=== PATIENT | female | born 1960 | race Caucasian/White ===

== ENCOUNTER → 2016-06-27 | Outpatient (CLI) | payer OTHER ==
[~2016-06-27] MED LIST: ASPIRIN325 MG PO; BENADRYL25 MG PO; LAMICTAL200 MG PO; LAMOTRIGINE200 MG PO; MEDROL DOSEPAK4 MG PO; MICROZIDE12.5 MG PO; NASONEX17 GM NASBOTH; OXYCODONE HCL5 MG PO; PRINIVIL10 MG PO; PRINIVIL20 MG PO; TRAZODONE HCL50 MG PO; TYLENOL325 MG PO; VALIUM5 MG PO; VALTREX1000 MG PO
== END | disposition short-term general hospital (02) ==
LOC: CLCARD 09:02
DX: R00.2 Palpitations (principal); I10 Essential (primary) hypertension; E78.5 Hyperlipidemia, unspecified; R07.9 Chest pain, unspecified

== ENCOUNTER → 2016-07-04 | Outpatient (CLI) | payer OTHER | END | disposition short-term general hospital (02) | LOC: CLCARD 08:27 | DX: R00.2 Palpitations (principal); I47.1 Supraventricular tachycardia; I10 Essential (primary) hypertension; E78.5 Hyperlipidemia, unspecified; Z87.891 Personal history of nicotine dependence; Z79.899 Other long term (current) drug therapy ==